=== PATIENT | female | born 1975 | race Two or more races ===

== ENCOUNTER 2021-02-10 12:44 | Outpatient (CLI) | payer MEDICAID | END 2021-02-10 23:59 | disposition home or self-care (01) | LOC: LAB 12:44 | PROVIDERS: ATTEND Specialist | DX: Z01.812 Encounter for preprocedural laboratory examination (principal); Z20.822 Contact with and (suspected) exposure to COVID-19 | CPT/HCPCS: C9803; U0003 ==

== ENCOUNTER 2021-02-13 05:57 | Day surgery (SDC) | payer MEDICAID ==
[2021-02-13] MEDS ORDERED: ANESTHESIA TRAY IN PYXIS 1 EA TRAY MC ONE (06:58)
[2021-02-13] MEDS ORDERED: KETOROLAC TROMETHAMINE INJ 30 MG/ML VIAL ONE (07:01)
[2021-02-13] MEDS ORDERED: oxyCODONE HCL SR 20MG TAB.SR.12H PO ONE (07:02)
[2021-02-13] MEDS ORDERED: ACETAMINOPHEN 325 MG TABLET ONE (07:02)
[2021-02-13] MEDS ORDERED: GABAPENTIN 300 MG CAPSULE ONE (07:02)
[2021-02-13] MEDS ORDERED: FENTANYL PF 250MCG/5ML AMPUL ONE (07:05)
[2021-02-13] MEDS ORDERED: HEMOSTATIC MATRIX 8 ML 1 EACH PAD MC ONE (07:09)
[2021-02-13] MEDS ORDERED: BUPIVACAINE 0.5 % PF 150 MG/30 ML VIAL ONE (07:09)
[2021-02-13] MEDS ORDERED: CEFAZOLIN 1 GM ONE (07:09)
[2021-02-13] MEDS ORDERED: LIDOCAINE 1%-EPI 1:100,000 20 ML VIAL ONE (07:10)
[2021-02-13] MEDS ORDERED: HYDROMORPHONE INJ 2 MG/ML DISP.SYRIN ONE (09:58)
[2021-02-13] MEDS ORDERED: HYDROMORPHONE 1 MG/1 ML DISP.SYRIN ONE (11:13)
[2021-02-13] MEDS ORDERED: HYDROCODONE/APAP 5/325MG TABLET ONE (11:42)
== END 2021-02-13 13:35 | disposition home or self-care (01) ==
LOC: DS 05:57
PROVIDERS: ATTEND Specialist
DX: M48.02 Spinal stenosis, cervical region (principal); M50.222 Other cervical disc displacement at C5-C6 level; M50.30 Other cervical disc degeneration, unspecified cervical region; K21.9 Gastro-esophageal reflux disease without esophagitis; Z79.899 Other long term (current) drug therapy
CPT/HCPCS: 22551; 22552; 22845; 22853 ×2; 36415; 72040; 84703; 86850; A6209 ×2; C1713 ×3; C1762; J0330; J0690 ×2; J1100; J1170; J1885; J2704; J3010; J3490 ×4